=== PATIENT | male | born 1955 | race Caucasian/White ===

== ENCOUNTER → 2016-07-28 | Outpatient (CLI) | payer OTHER ==
[~2016-07-28] VITALS: Ht 182.9 cm; Wt 88.5 kg
[~2016-07-28] MED LIST: ADENOSINE 74 MG in GIVE UN-DILUTED 0 ML IV ONE; ADENOSINE 90 MG/30 ML INJ IV ONE
[2016-07-28 14:24] LABS: Urine Bilirubin Negative (Negative); Urine Blood Negative /uL (Negative); Urine Color Colorless (Yellow); Urine Glucose Normal (Normal); Urine Ketone Negative (Negative); Urine Nitrite Negative (Negative); Urine Urobilinogen Normal (Negative)
[2016-07-28 14:26] LABS: Basophils # (auto) 0 uL; Basophils % (auto) 0.5 % (0.0-2.0); Eosinophils # (auto) 0.2 uL; Eosinophils % (auto) 2.4 % (0.0-7.0); Hematocrit 46.3 % (41.0-53.0); Hemoglobin 15.1 g/dL (13.5-17.5); Lymphocytes # (auto) 2.1 uL; Lymphocytes % (auto) 23.2 % (10.0-50.0); Mean Corpuscular Hemoglobin 30.1 pg (28.0-32.0); Mean Corpuscular Hgb Conc. 32.5 g/dL (32.0-36.0); Mean Corpuscular Volume 92.3 fL (80.0-100.0); Mean Platelet Volume 8.6 fL (7.4-10.4); Neutrophils # (auto) 5.8 uL; Neutrophils % (auto) 62.9 % (37.0-80.0); Platelet Count (auto) 366 10^3/uL (140-450); White Blood Cell 9.2 10^3/uL (4.4-10.8)
[2016-07-28 14:59] LABS: Albumin 3.9 g/dL (3.4-5.0); BUN/Creatinine Ratio 10.3; Bilirubin, Direct 0.1 mg/dL (0-0.2); Bilirubin, Total 0.5 mg/dL (0.2-1.0); Calcium 9.5 mg/dL (8.5-10.1); Potassium 3.7 mmol/L (3.5-5.1)
== END | disposition home or self-care (01) ==
LOC: Rad HDHVI 08:56
PROVIDERS: ATTEND Internal Medicine Cardiovascular Disease
DX: I10 Essential (primary) hypertension (principal); E78.00 Pure hypercholesterolemia, unspecified; K74.1 Hepatic sclerosis; E11.9 Type 2 diabetes mellitus without complications; R97.20 Elevated prostate specific antigen [PSA]; R53.81 Other malaise; E03.9 Hypothyroidism, unspecified; D64.9 Anemia, unspecified; E55.9 Vitamin D deficiency, unspecified; N39.0 Urinary tract infection, site not specified
CPT/HCPCS: 36415; 78452; 80048; 80061; 80076; 81003; 82306; 83036; 84153; 84403; 84443; 85025; 93005; 93306; 96374; 96375; J0153

== ENCOUNTER → 2016-08-02 | Outpatient (CLI) | payer OTHER | END | disposition home or self-care (01) | LOC: Rad HDHVI 09:15 | PROVIDERS: ATTEND Internal Medicine Cardiovascular Disease | DX: Z01.810 Encounter for preprocedural cardiovascular examination (principal); I76 Septic arterial embolism | CPT/HCPCS: 93926 ==

== ENCOUNTER → 2016-09-13 | Outpatient (CLI) | payer OTHER ==
[2016-09-13 15:06] LABS: Body Fluid Polymorphonuclear 10 %
== END | disposition home or self-care (01) ==
LOC: LAB 09:30
DX: M06.9 Rheumatoid arthritis, unspecified (principal); M00.9 Pyogenic arthritis, unspecified; M10.9 Gout, unspecified; M25.50 Pain in unspecified joint
CPT/HCPCS: 87070; 87205; 89051; 89060

== ENCOUNTER → 2016-09-15 | Outpatient (CLI) | payer OTHER ==
[2016-09-15 11:46] LABS: Urine RBC None Seen /hpf (0 - 3)
[2016-09-15 12:13] LABS: Albumin 3.7 g/dL (3.4-5.0); BUN/Creatinine Ratio 14.1; Bilirubin, Total 0.7 mg/dL (0.2-1.0); Calcium 8.9 mg/dL (8.5-10.1); Potassium 3.6 mmol/L (3.5-5.1); Total Protein 6.6 g/dL (6.4-8.2)
[2016-09-15 12:22] LABS: INR 0.97 (0.9-1.15); Partial Thromboplastin Time 25.4 sec (22.64-33.71)
[2016-09-15 12:23] LABS: Basophils # (auto) 0.1 uL; Basophils % (auto) 1.2 % (0.0-2.0); Eosinophils # (auto) 0.1 uL; Eosinophils % (auto) 1.3 % (0.0-7.0); Hemoglobin 13.5 g/dL (13.5-17.5); Lymphocytes # (auto) 2.3 uL; Lymphocytes % (auto) 23.3 % (10.0-50.0); Mean Corpuscular Hemoglobin 30.3 pg (28.0-32.0); Mean Corpuscular Hgb Conc. 33.8 g/dL (32.0-36.0); Mean Corpuscular Volume 89.7 fL (80.0-100.0); Mean Platelet Volume 8.3 fL (7.4-10.4); Monocytes # (auto) 0.9 uL; Monocytes % (auto) 9.6 % (0.0-12.0); Neutrophils # (auto) 6.3 uL; Neutrophils % (auto) 64.6 % (37.0-80.0); Platelet Count (auto) 329 10^3/uL (140-450); Red Cell Distribution Width 16.4 % (11.6-16.0); White Blood Cell 9.7 10^3/uL (4.4-10.8)
[2016-09-15 13:07] LABS: Urine Bilirubin Negative (Negative); Urine Blood Negative /uL (Negative); Urine Color Yellow (Yellow); Urine Glucose Normal (Normal); Urine Ketone Negative (Negative); Urine Nitrite Negative (Negative); Urine Squamous Epithelial Cell FEW /hpf (<5); Urine Urobilinogen Normal (Negative)
== END | disposition home or self-care (01) ==
LOC: LAB 11:30
PROVIDERS: ATTEND Internal Medicine
DX: Z01.818 Encounter for other preprocedural examination (principal)
CPT/HCPCS: 36415; 80053; 81001; 85025; 85610; 85730

== ENCOUNTER → 2017-02-27 | Outpatient (CLI) | payer OTHER ==
[~2017-02-27] MED LIST changes: -ADENOSINE 74 MG in GIVE UN-DILUTED 0 ML IV ONE; -ADENOSINE 90 MG/30 ML INJ IV ONE; +ATOR1TAB PO; +GABA-497 PO; +HYDR-4663 PO; +IBUP800T24 PO; +PEN400T PO; +PRE5T PO
== END | disposition home or self-care (01) ==
LOC: LAB 12:21
PROVIDERS: ATTEND Internal Medicine Gastroenterology
DX: R10.13 Epigastric pain (principal); Z95.5 Presence of coronary angioplasty implant and graft
CPT/HCPCS: 36415; 82565; 84520

== ENCOUNTER → 2017-03-03 | Outpatient (CLI) | payer OTHER ==
[2017-03-03 10:12] LABS: Basophils # (auto) 0 uL; Basophils % (auto) 0.4 % (0.0-2.0); CONDITION Y; Eosinophils # (auto) 0.2 uL; Eosinophils % (auto) 2.2 % (0.0-7.0); Hematocrit 42.8 % (41.0-53.0); Hemoglobin 14.6 g/dL (13.5-17.5); Lymphocytes # (auto) 2.4 uL; Lymphocytes % (auto) 28.2 % (10.0-50.0); Mean Corpuscular Hgb Conc. 34.1 g/dL (32.0-36.0); Mean Corpuscular Volume 90.9 fL (80.0-100.0); Mean Platelet Volume 8.3 fL (7.4-10.4); Monocytes # (auto) 0.9 uL; Monocytes % (auto) 10.6 % (0.0-12.0); Neutrophils % (auto) 58.6 % (37.0-80.0); Platelet Count (auto) 341 10^3/uL (140-450); Red Cell Distribution Width 15.8 % (11.6-16.0); White Blood Cell 8.6 10^3/uL (4.4-10.8)
[2017-03-03 10:48] LABS: Albumin 3.8 g/dL (3.4-5.0); BUN/Creatinine Ratio 11.6; Bilirubin, Total 0.4 mg/dL (0.2-1.0); Calcium 9.2 mg/dL (8.5-10.1); Potassium 3.5 mmol/L (3.5-5.1); Total Protein 6.8 g/dL (6.4-8.2)
== END | disposition home or self-care (01) ==
LOC: LAB 09:42
DX: I10 Essential (primary) hypertension (principal); D64.9 Anemia, unspecified; M06.9 Rheumatoid arthritis, unspecified; M25.50 Pain in unspecified joint; Z79.899 Other long term (current) drug therapy
CPT/HCPCS: 36415; 80053; 85025; 85652; 86141

== ENCOUNTER → 2017-03-08 | Outpatient (CLI) | payer OTHER ==
[~2017-03-08] MED LIST changes: +ASPI81TA27 PO; -ATOR1TAB PO; +CLOP75TA28 PO; -HYDR-4663 PO; +HYDR200T PO; -IBUP800T24 PO; +OMEP20CA74 PO; +ZOLP-158 PO
== END | disposition home or self-care (01) ==
LOC: XY 09:47
PROVIDERS: ATTEND Internal Medicine Cardiovascular Disease
DX: I73.9 Peripheral vascular disease, unspecified (principal)
CPT/HCPCS: 93925

== ENCOUNTER 2017-03-10 09:41 | Day surgery (SDC) | payer OTHER ==
[2017-03-07 12:35] LABS: Basophils # (auto) 0 uL; Basophils % (auto) 0.2 % (0.0-2.0); CONDITION Y; Eosinophils # (auto) 0.2 uL; Eosinophils % (auto) 1.7 % (0.0-7.0); Hematocrit 43.7 % (41.0-53.0); Hemoglobin 14.6 g/dL (13.5-17.5); Lymphocytes % (auto) 18.7 % (10.0-50.0); Mean Corpuscular Hemoglobin 31.1 pg (28.0-32.0); Mean Corpuscular Hgb Conc. 33.6 g/dL (32.0-36.0); Mean Corpuscular Volume 92.8 fL (80.0-100.0); Mean Platelet Volume 9.1 fL (7.4-10.4); Monocytes % (auto) 9.8 % (0.0-12.0); Neutrophils # (auto) 7.3 uL; Neutrophils % (auto) 69.6 % (37.0-80.0); Platelet Count (auto) 348 10^3/uL (140-450); Red Cell Distribution Width 15.9 % (11.6-16.0); White Blood Cell 10.6 10^3/uL (4.4-10.8)
[2017-03-07 12:58] LABS: INR 0.92 (0.9-1.15); Partial Thromboplastin Time 28.6 sec (22.64-33.71)
[~2017-03-10] VITALS: Ht 182.9 cm; Wt 86.2 kg
[2017-03-10 11:47] VITALS: BP 133/73
== END 2017-03-10 11:58 | disposition home or self-care (01) ==
LOC: GI 09:41
PROVIDERS: ATTEND Internal Medicine Gastroenterology
DX: K29.50 Unspecified chronic gastritis without bleeding (principal); K44.9 Diaphragmatic hernia without obstruction or gangrene; K20.8 Other esophagitis; F17.210 Nicotine dependence, cigarettes, uncomplicated
CPT/HCPCS: 36415; 43239; 85025; 85610; 85730; 88305; J1200; J2250; J3010; J7030

== ENCOUNTER 2017-04-24 07:47 | Day surgery (SDC) | payer OTHER ==
[2017-04-20 09:37] LABS: INR 0.86 (0.9-1.15); Prothrombin Time 9.4 sec (9.37-12.3)
[2017-04-20 10:16] LABS: Basophils # (auto) 0.1 uL; Basophils % (auto) 0.7 % (0.0-2.0); Eosinophils # (auto) 0.1 uL; Eosinophils % (auto) 1.2 % (0.0-7.0); Hematocrit 45.3 % (41.0-53.0); Hemoglobin 15.2 g/dL (13.5-17.5); Lymphocytes # (auto) 2.1 uL; Lymphocytes % (auto) 17.8 % (10.0-50.0); Mean Corpuscular Hemoglobin 31.4 pg (28.0-32.0); Mean Corpuscular Hgb Conc. 33.7 g/dL (32.0-36.0); Mean Corpuscular Volume 93.2 fL (80.0-100.0); Mean Platelet Volume 8.4 fL (6.9-10.8); Monocytes # (auto) 1.1 uL; Monocytes % (auto) 9.5 % (0.0-12.0); Neutrophils # (auto) 8.3 uL; Neutrophils % (auto) 70.8 % (37.0-80.0); Platelet Count (auto) 324 10^3/uL (140-450); Red Cell Distribution Width 15.2 % (11.8-14.3); White Blood Cell 11.7 10^3/uL (4.4-10.8)
[~2017-04-24] VITALS: Ht 182.9 cm; Wt 86.2 kg
[~2017-04-24 07:47] MED LIST changes: +ALPR0.25 PO; -GABA-497 PO; +NORT25CA PO; -OMEP20CA74 PO; +PANT40TA2 PO
[2017-04-24] MEDS ORDERED: FLUMAZENIL 0.1 MG/ML INJ 10ML MDV IV ONE (08:03)
[2017-04-24] MEDS ORDERED: NALOXONE HCL 0.4 MG/ML VIAL ONE (08:03)
[2017-04-24] MEDS ORDERED: SODIUM CHLORIDE LOCK 10 ML ONE (08:04)
[2017-04-24] MEDS ORDERED: diphenhdrAMINE HCL 50 MG/1 ML VL ONE (08:04)
[2017-04-24] MEDS: fentaNYL CITRATE 100 MCG/2 ML VL ONE ×2 (09:29→09:33)
[2017-04-24] MEDS: MIDAZOLAM HCL 5 MG/ML-1ML VIAL ONE ×2 (09:29→09:33)
[2017-04-24 10:20] VITALS: BP 118/70
== END 2017-04-24 10:22 | disposition home or self-care (01) ==
LOC: GI 07:47
PROVIDERS: ATTEND Internal Medicine Gastroenterology
DX: D12.3 Benign neoplasm of transverse colon (principal); K64.8 Other hemorrhoids; Z86.010 Personal history of colon polyps; M06.9 Rheumatoid arthritis, unspecified; F17.210 Nicotine dependence, cigarettes, uncomplicated
CPT/HCPCS: 36415; 45380; 85025; 85610; 85730; J1200; J2250; J3010; J7030

== ENCOUNTER → 2017-06-02 | Outpatient (CLI) | payer OTHER ==
[2017-06-02 10:25] LABS: Basophils # (auto) 0.1 uL; Basophils % (auto) 0.6 % (0.0-2.0); Eosinophils # (auto) 0.1 uL; Eosinophils % (auto) 1.1 % (0.0-7.0); Hematocrit 46.1 % (41.0-53.0); Hemoglobin 15.8 g/dL (13.5-17.5); Lymphocytes # (auto) 1.8 uL; Lymphocytes % (auto) 13.6 % (10.0-50.0); Mean Corpuscular Hemoglobin 31.4 pg (28.0-32.0); Mean Corpuscular Hgb Conc. 34.2 g/dL (32.0-36.0); Mean Corpuscular Volume 91.7 fL (80.0-100.0); Mean Platelet Volume 7.7 fL (6.9-10.8); Monocytes # (auto) 1.1 uL; Monocytes % (auto) 8.7 % (0.0-12.0); Neutrophils # (auto) 9.8 uL; Platelet Count (auto) 325 10^3/uL (140-450); Red Cell Distribution Width 15.1 % (11.8-14.3); White Blood Cell 12.9 10^3/uL (4.4-10.8)
[2017-06-02 10:35] LABS: Albumin 3.9 g/dL (3.4-5.0); BUN/Creatinine Ratio 10.5; Bilirubin, Total 0.6 mg/dL (0.2-1.0); Calcium 9.3 mg/dL (8.5-10.1); Potassium 3.8 mmol/L (3.5-5.1); Total Protein 7.3 g/dL (6.4-8.2)
== END | disposition home or self-care (01) ==
LOC: LAB 09:47
DX: I10 Essential (primary) hypertension (principal); M06.9 Rheumatoid arthritis, unspecified; I70.0 Atherosclerosis of aorta; E78.00 Pure hypercholesterolemia, unspecified; D64.9 Anemia, unspecified; Z79.899 Other long term (current) drug therapy
CPT/HCPCS: 36415; 80053; 85025; 85652; 86141

== ENCOUNTER → 2017-09-06 | Outpatient (CLI) | payer OTHER ==
[2017-09-06 16:02] LABS: Basophils # (auto) 0.1 uL; Basophils % (auto) 0.6 % (0.0-2.0); Eosinophils # (auto) 0.3 uL; Eosinophils % (auto) 3.3 % (0.0-7.0); Hemoglobin 14.4 g/dL (13.5-17.5); Lymphocytes # (auto) 1.7 uL; Lymphocytes % (auto) 21.3 % (10.0-50.0); Mean Corpuscular Hemoglobin 31.4 pg (28.0-32.0); Mean Corpuscular Hgb Conc. 34.1 g/dL (32.0-36.0); Mean Corpuscular Volume 91.8 fL (80.0-100.0); Monocytes % (auto) 13.3 % (0.0-12.0); Neutrophils # (auto) 4.8 uL; Neutrophils % (auto) 61.5 % (37.0-80.0); Platelet Count (auto) 321 10^3/uL (140-450); Red Blood Cells 4.58 10^6/uL (4.5-5.90); Red Cell Distribution Width 15.2 % (11.8-14.3); White Blood Cell 7.9 10^3/uL (4.4-10.8)
[2017-09-06 16:14] LABS: Urine Bacteria NONE SEEN /hpf (None Seen); Urine Blood Negative /uL (Negative); Urine Specific Gravity 1.015 (1.001-1.035); Urine WBC <1 /hpf (0 - 3)
[2017-09-06 16:18] LABS: Albumin 3.7 g/dL (3.4-5.0); BUN/Creatinine Ratio 17.8; Calcium 8.9 mg/dL (8.5-10.1); Potassium 4.1 mmol/L (3.5-5.1)
[2017-09-06 16:20] LABS: Bilirubin, Total 0.4 mg/dL (0.2-1.0)
== END | disposition home or self-care (01) ==
LOC: LAB 15:43
PROVIDERS: ATTEND Nurse Practitioner
DX: E78.5 Hyperlipidemia, unspecified (principal)
CPT/HCPCS: 36415; 80053; 81001; 83036; 84443; 85025

== ENCOUNTER → 2017-12-29 | Outpatient (CLI) | payer OTHER | END | disposition home or self-care (01) | LOC: XY 08:08 | PROVIDERS: ATTEND Family Medicine | DX: I10 Essential (primary) hypertension (principal); E78.5 Hyperlipidemia, unspecified; J44.9 Chronic obstructive pulmonary disease, unspecified; E11.9 Type 2 diabetes mellitus without complications; E03.9 Hypothyroidism, unspecified; R60.0 Localized edema; Z79.899 Other long term (current) drug therapy | CPT/HCPCS: 93925; 93971 ==

== ENCOUNTER → 2018-03-01 | Outpatient (CLI) | payer OTHER ==
[~2018-03-01] MED LIST changes: +HYDR-4441 PO; -HYDR200T PO
[2018-03-01 11:52] LABS: Basophils # (auto) 0 uL; Basophils % (auto) 0.5 % (0.0-2.0); Eosinophils # (auto) 0 uL; Eosinophils % (auto) 0.4 % (0.0-7.0); Hematocrit 43.9 % (41.0-53.0); Hemoglobin 14.9 g/dL (13.5-17.5); Lymphocytes # (auto) 0.6 uL; Lymphocytes % (auto) 6.2 % (10.0-50.0); Mean Corpuscular Hemoglobin 30.9 pg (28.0-32.0); Mean Corpuscular Volume 91.1 fL (80.0-100.0); Monocytes # (auto) 0.5 uL; Monocytes % (auto) 5.3 % (0.0-12.0); Neutrophils % (auto) 87.6 % (37.0-80.0); Nucleated Red Blood Cells % 0.1 %; Platelet Count (auto) 313 10^3/uL (140-450); Red Blood Cells 4.81 10^6/uL (4.5-5.90); Red Cell Distribution Width 15.3 % (11.8-14.3); White Blood Cell 9.1 10^3/uL (4.4-10.8)
[2018-03-01 12:50] LABS: Albumin 3.6 g/dL (3.4-5.0); BUN/Creatinine Ratio 15.6; Bilirubin, Total 0.5 mg/dL (0.2-1.0); CRP High Sensitivity 0.32 mg/dL (< 0.3); Potassium 4.1 mmol/L (3.5-5.1); Total Protein 6.9 g/dL (6.4-8.2)
== END | disposition home or self-care (01) ==
LOC: LAB 11:27
PROVIDERS: ATTEND Internal Medicine Rheumatology
DX: M06.9 Rheumatoid arthritis, unspecified (principal)
CPT/HCPCS: 36415; 80053; 85025; 85652; 86141; 86200; 86431

== ENCOUNTER → 2018-04-02 | Outpatient (CLI) | payer OTHER ==
[2018-04-02 10:05] LABS: Folate (Folic Acid) 13.61 ng/mL (5.38-24)
== END | disposition home or self-care (01) ==
LOC: LAB 08:41
PROVIDERS: ATTEND Psychiatry & Neurology Neurology
DX: G62.9 Polyneuropathy, unspecified (principal)
CPT/HCPCS: 36415; 82607; 82746; 82951; 84155; 84165

== ENCOUNTER → 2018-08-21 | Outpatient (CLI) | payer OTHER ==
[2018-08-22 08:08] LABS: Immunoglobulin G, Serum 479 mg/dL (700-1600); RPR Non Reactive (Non Reactive)
[2018-08-22 11:41] LABS: Folate (Folic Acid) 9.02 ng/mL (5.38-24)
== END | disposition home or self-care (01) ==
LOC: LAB 09:17
DX: F07.81 Postconcussional syndrome (principal); G62.89 Other specified polyneuropathies; G56.01 Carpal tunnel syndrome, right upper limb; Z68.28 Body mass index [BMI] 28.0-28.9, adult
CPT/HCPCS: 36415; 82607; 82746; 82784; 82951; 83036; 84155; 84156; 84165; 84166; 84207; 84425; 84443; 86334; 86592

== ENCOUNTER → 2018-09-13 | Outpatient (CLI) | payer OTHER ==
[2018-09-13 09:28] LABS: Basophils # (auto) 0.1 uL; Basophils % (auto) 1.2 % (0.0-2.0); Eosinophils # (auto) 0.1 uL; Hematocrit 44.3 % (41.0-53.0); Hemoglobin 14.7 g/dL (13.5-17.5); Lymphocytes # (auto) 1.6 uL; Lymphocytes % (auto) 27.2 % (10.0-50.0); Mean Corpuscular Hemoglobin 30.4 pg (28.0-32.0); Mean Corpuscular Hgb Conc. 33.3 g/dL (32.0-36.0); Mean Corpuscular Volume 91.4 fL (80.0-100.0); Monocytes # (auto) 0.7 uL; Monocytes % (auto) 11.1 % (0.0-12.0); Neutrophils # (auto) 3.5 uL; Neutrophils % (auto) 58.5 % (37.0-80.0); Platelet Count (auto) 279 10^3/uL (140-450); Red Blood Cells 4.84 10^6/uL (4.5-5.90); Red Cell Distribution Width 15.1 % (11.8-14.3)
[2018-09-13 10:05] LABS: Albumin 3.7 g/dL (3.4-5.0); Calcium 8.8 mg/dL (8.5-10.1); Potassium 3.6 mmol/L (3.5-5.1)
[2018-09-13 10:08] LABS: BUN/Creatinine Ratio 12.5; Bilirubin, Total 0.7 mg/dL (0.2-1.0); Total Protein 6.8 g/dL (6.4-8.2)
[2018-09-13 10:20] LABS: Free T4 (Free Thyroxine) 1.11 ng/dL (0.89-1.76)
[2018-09-13 10:21] LABS: Folate (Folic Acid) 11.91 ng/mL (5.38-24)
== END | disposition home or self-care (01) ==
LOC: LAB 09:08
PROVIDERS: ATTEND Internal Medicine
DX: I73.9 Peripheral vascular disease, unspecified (principal); R07.9 Chest pain, unspecified; R13.10 Dysphagia, unspecified; Z68.27 Body mass index [BMI] 27.0-27.9, adult; Z98.62 Peripheral vascular angioplasty status
CPT/HCPCS: 36415; 80053; 80061; 82746; 84439; 84443; 85025; 86200; 86431

== ENCOUNTER → 2018-09-26 | Outpatient (CLI) | payer OTHER | END | disposition home or self-care (01) | LOC: Rad HDHVI 14:48 | PROVIDERS: ATTEND Internal Medicine Cardiovascular Disease | DX: I05.9 Rheumatic mitral valve disease, unspecified (principal) | CPT/HCPCS: 93306 ==

== ENCOUNTER → 2018-10-01 | Outpatient (CLI) | payer OTHER ==
[2018-10-01 09:51] LABS: Basophils # (auto) 0.1 uL; Basophils % (auto) 1.2 % (0.0-2.0); Eosinophils # (auto) 0.1 uL; Eosinophils % (auto) 1.7 % (0.0-7.0); Hematocrit 43.3 % (41.0-53.0); Hemoglobin 14.5 g/dL (13.5-17.5); Lymphocytes # (auto) 1.3 uL; Lymphocytes % (auto) 23.9 % (10.0-50.0); Mean Corpuscular Hemoglobin 30.6 pg (28.0-32.0); Mean Corpuscular Hgb Conc. 33.6 g/dL (32.0-36.0); Monocytes # (auto) 0.8 uL; Monocytes % (auto) 14.1 % (0.0-12.0); Neutrophils # (auto) 3.3 uL; Neutrophils % (auto) 59.1 % (37.0-80.0); Platelet Count (auto) 279 10^3/uL (140-450); Red Blood Cells 4.75 10^6/uL (4.5-5.90); Red Cell Distribution Width 15.2 % (11.8-14.3); White Blood Cell 5.5 10^3/uL (4.4-10.8)
== END | disposition home or self-care (01) ==
LOC: LAB 09:06
PROVIDERS: ATTEND Internal Medicine
DX: D47.2 Monoclonal gammopathy (principal)
CPT/HCPCS: 36415; 82232; 83883; 85025

== ENCOUNTER → 2018-10-02 | Outpatient (CLI) | payer OTHER | END | disposition home or self-care (01) | LOC: LAB 15:01 | PROVIDERS: ATTEND Internal Medicine | DX: D72.822 Plasmacytosis (principal) | CPT/HCPCS: 88189; 88291; 88341 ==

== ENCOUNTER → 2018-10-31 | Outpatient (CLI) | payer OTHER ==
[~2018-10-31] VITALS: Ht 182.9 cm; Wt 88.5 kg
[~2018-10-31] MED LIST changes: +ADENOSINE 74 MG in GIVE UN-DILUTED 0 ML IV ONE; +ADENOSINE 90 MG/30 ML INJ IV ONE
== END | disposition home or self-care (01) ==
LOC: Rad HDHVI 09:56
PROVIDERS: ATTEND Internal Medicine Cardiovascular Disease
DX: I25.10 Atherosclerotic heart disease of native coronary artery without angina pectoris (principal); I10 Essential (primary) hypertension; E78.5 Hyperlipidemia, unspecified; R06.02 Shortness of breath
CPT/HCPCS: 78452; 93005; 96374; 96375; A9500; J0153

== ENCOUNTER → 2018-11-13 | Outpatient (CLI) | payer OTHER ==
[~2018-11-13] MED LIST changes: -ADENOSINE 74 MG in GIVE UN-DILUTED 0 ML IV ONE; -ADENOSINE 90 MG/30 ML INJ IV ONE
== END | disposition home or self-care (01) ==
LOC: LAB 09:31
PROVIDERS: ATTEND Internal Medicine Gastroenterology
DX: R13.10 Dysphagia, unspecified (principal); R19.5 Other fecal abnormalities
CPT/HCPCS: 82705; 82784; 83516; 86255; 87045

== ENCOUNTER 2018-12-25 11:38 | Day surgery (SDC) | payer OTHER ==
[2018-12-20 15:18] LABS: Basophils # (auto) 0.1 uL; Eosinophils # (auto) 0.1 uL; Eosinophils % (auto) 1.2 % (0.0-7.0); Hematocrit 44.9 % (41.0-53.0); Hemoglobin 15.1 g/dL (13.5-17.5); Lymphocytes # (auto) 0.9 uL; Lymphocytes % (auto) 11.8 % (10.0-50.0); Mean Corpuscular Hemoglobin 30.4 pg (28.0-32.0); Mean Corpuscular Hgb Conc. 33.7 g/dL (32.0-36.0); Mean Corpuscular Volume 90.3 fL (80.0-100.0); Monocytes # (auto) 0.8 uL; Neutrophils # (auto) 5.9 uL; Platelet Count (auto) 277 10^3/uL (140-450); Red Blood Cells 4.98 10^6/uL (4.5-5.90); White Blood Cell 7.8 10^3/uL (4.4-10.8)
[2018-12-20 15:22] LABS: INR 0.87 (0.9-1.15); Partial Thromboplastin Time 25.3 sec (23.64-32.05)
[~2018-12-25] VITALS: Ht 182.9 cm; Wt 88.5 kg
[~2018-12-25 11:38] MED LIST changes: -ASPI81TA27 PO; +GABA300C10 PO; +LEFL20TA PO; -NORT25CA PO; -PEN400T PO
[2018-12-25] MEDS ORDERED: LIDOCAINE VISCOUS 2% 15ML UD MT ONE (11:39)
[2018-12-25] MEDS ORDERED: NALOXONE HCL 0.4 MG/ML VIAL ONE (11:55)
[2018-12-25] MEDS ORDERED: SODIUM CHLORIDE LOCK 10 ML ONE (11:55)
[2018-12-25] MEDS ORDERED: FLUMAZENIL 0.1 MG/ML INJ 10ML MDV IV ONE (11:55)
[2018-12-25] MEDS ORDERED: diphenhdrAMINE HCL 50 MG/1 ML VL ONE (11:56)
[2018-12-25] MEDS: MIDAZOLAM HCL 5 MG/ML-1ML VIAL ONE ×2 (12:06→12:09)
[2018-12-25] MEDS: fentaNYL CITRATE 100 MCG/2 ML VL ONE ×2 (12:06→12:09)
[2018-12-25 12:37] VITALS: BP 112/66
== END 2018-12-25 12:51 | disposition home or self-care (01) ==
LOC: GI 11:38
PROVIDERS: ATTEND Internal Medicine Gastroenterology
DX: K29.50 Unspecified chronic gastritis without bleeding (principal); K29.80 Duodenitis without bleeding; M19.90 Unspecified osteoarthritis, unspecified site; G62.9 Polyneuropathy, unspecified; Z79.899 Other long term (current) drug therapy; Z95.9 Presence of cardiac and vascular implant and graft, unspecified; Z91.041 Radiographic dye allergy status; Z88.0 Allergy status to penicillin; Z87.891 Personal history of nicotine dependence; Z87.01 Personal history of pneumonia (recurrent)
CPT/HCPCS: 36415; 43239; 43450; 85025; 85610; 85730; 88305; 88342; J2250; J3010; J7030

== ENCOUNTER → 2019-02-04 | Outpatient (CLI) | payer OTHER ==
[~2019-02-04] MED LIST changes: +HYDR-4188 PO; -HYDR-4441 PO
[2019-02-04 08:39] LABS: Basophils # (auto) 0.1 uL; Basophils % (auto) 1.2 % (0.0-2.0); Eosinophils # (auto) 0.2 uL; Hematocrit 42.4 % (41.0-53.0); Hemoglobin 14.4 g/dL (13.5-17.5); Lymphocytes # (auto) 1.4 uL; Lymphocytes % (auto) 16.8 % (10.0-50.0); Mean Corpuscular Hemoglobin 30.2 pg (28.0-32.0); Mean Corpuscular Hgb Conc. 33.9 g/dL (32.0-36.0); Mean Corpuscular Volume 89.2 fL (80.0-100.0); Monocytes % (auto) 12.3 % (0.0-12.0); Neutrophils # (auto) 5.8 uL; Neutrophils % (auto) 67.7 % (37.0-80.0); Platelet Count (auto) 288 10^3/uL (140-450); Red Blood Cells 4.76 10^6/uL (4.5-5.90); Red Cell Distribution Width 15.5 % (11.8-14.3); White Blood Cell 8.5 10^3/uL (4.4-10.8)
[2019-02-04 09:01] LABS: Potassium 3.5 mmol/L (3.5-5.1)
[2019-02-04 09:43] LABS: Albumin 3.5 g/dL (3.4-5.0); BUN/Creatinine Ratio 15.5; Bilirubin, Total 0.6 mg/dL (0.2-1.0); Calcium 8.8 mg/dL (8.5-10.1); Total Protein 6.9 g/dL (6.4-8.2)
== END | disposition home or self-care (01) ==
LOC: LAB 08:03
PROVIDERS: ATTEND Internal Medicine
DX: Z12.5 Encounter for screening for malignant neoplasm of prostate (principal); Z12.11 Encounter for screening for malignant neoplasm of colon; I25.10 Atherosclerotic heart disease of native coronary artery without angina pectoris
CPT/HCPCS: 36415; 80053; 80061; 84153; 84443; 85025

== ENCOUNTER → 2019-04-22 | Outpatient (CLI) | payer OTHER ==
[2019-04-22 13:53] LABS: Basophils # (auto) 0.1 uL; Basophils % (auto) 0.9 % (0.0-2.0); Eosinophils # (auto) 0.1 uL; Eosinophils % (auto) 2.2 % (0.0-7.0); Hematocrit 43.4 % (41.0-53.0); Hemoglobin 14.5 g/dL (13.5-17.5); Lymphocytes # (auto) 1.2 uL; Lymphocytes % (auto) 21.7 % (10.0-50.0); Mean Corpuscular Hemoglobin 30.2 pg (28.0-32.0); Mean Corpuscular Hgb Conc. 33.5 g/dL (32.0-36.0); Mean Corpuscular Volume 90.2 fL (80.0-100.0); Monocytes # (auto) 0.7 uL; Monocytes % (auto) 12.7 % (0.0-12.0); Neutrophils # (auto) 3.5 uL; Neutrophils % (auto) 62.5 % (37.0-80.0); Platelet Count (auto) 282 10^3/uL (140-450); Red Blood Cells 4.81 10^6/uL (4.5-5.90); Red Cell Distribution Width 15.2 % (11.8-14.3); White Blood Cell 5.6 10^3/uL (4.4-10.8)
[2019-04-22 14:05] LABS: Albumin 3.9 g/dL (3.4-5.0); Potassium 3.7 mmol/L (3.5-5.1)
[2019-04-22 14:10] LABS: BUN/Creatinine Ratio 14.9; Bilirubin, Total 0.8 mg/dL (0.2-1.0); Total Protein 7.2 g/dL (6.4-8.2)
[2019-04-23 08:08] LABS: Immunoglobulin G, Serum 491 mg/dL (700-1600)
== END | disposition home or self-care (01) ==
LOC: LAB 12:57
PROVIDERS: ATTEND Internal Medicine Hematology & Oncology
DX: D47.2 Monoclonal gammopathy (principal)
CPT/HCPCS: 36415; 80053; 82784; 83615; 84155; 84156; 84165; 84166; 85025

== ENCOUNTER 2019-05-28 06:05 | Emergency (ER) | payer OTHER ==
[~2019-05-28] VITALS: Ht 182.9 cm; Wt 88.5 kg
[2019-05-28 06:18] VITALS: BP 108/77
== END 2019-05-28 07:15 | disposition home or self-care (01) ==
LOC: ER 06:06
DX: S80.11XA Contusion of right lower leg, initial encounter (principal); I25.10 Atherosclerotic heart disease of native coronary artery without angina pectoris; E78.00 Pure hypercholesterolemia, unspecified; F17.210 Nicotine dependence, cigarettes, uncomplicated; Z88.0 Allergy status to penicillin; Z79.899 Other long term (current) drug therapy; V29.9XXA Motorcycle rider (driver) (passenger) injured in unspecified traffic accident, initial encounter; Y93.89 Activity, other specified; Y92.89 Other specified places as the place of occurrence of the external cause; Y99.8 Other external cause status
CPT/HCPCS: 10140

== ENCOUNTER 2019-06-20 06:23 | Emergency (ER) | payer OTHER ==
[~2019-06-20] VITALS: Ht 182.9 cm; Wt 88.5 kg
[2019-06-20 09:24] LABS: Basophils # (auto) 0.1 uL; Eosinophils # (auto) 0.2 uL; Hematocrit 43.8 % (41.0-53.0); Hemoglobin 14.5 g/dL (13.5-17.5); Lymphocytes # (auto) 1.1 uL; Lymphocytes % (auto) 15.1 % (10.0-50.0); Mean Corpuscular Hemoglobin 29.8 pg (28.0-32.0); Mean Corpuscular Volume 90.4 fL (80.0-100.0); Neutrophils # (auto) 4.7 uL; Neutrophils % (auto) 66.9 % (37.0-80.0); Platelet Count (auto) 318 10^3/uL (140-450); Red Blood Cells 4.84 10^6/uL (4.5-5.90); Red Cell Distribution Width 15.4 % (11.8-14.3)
[2019-06-20 09:43] LABS: Albumin 3.6 g/dL (3.4-5.0); Potassium 4.3 mmol/L (3.5-5.1)
[2019-06-20 09:47] LABS: BUN/Creatinine Ratio 15.1; Bilirubin, Total 0.5 mg/dL (0.2-1.0); Total Protein 6.7 g/dL (6.4-8.2)
[2019-06-20 09:59] VITALS: BP 125/76
[2019-06-20 11:08] LABS: Urine Bacteria NONE SEEN /hpf (None Seen); Urine Blood Negative /uL (Negative); Urine Specific Gravity 1.009 (1.001-1.035); Urine WBC <1 /hpf (0 - 3)
== END 2019-06-20 13:39 | disposition home or self-care (01) ==
LOC: ER 06:23
DX: L03.115 Cellulitis of right lower limb (principal); M19.90 Unspecified osteoarthritis, unspecified site; E78.5 Hyperlipidemia, unspecified; Z86.73 Personal history of transient ischemic attack (TIA), and cerebral infarction without residual deficits; Z88.0 Allergy status to penicillin
CPT/HCPCS: 36415; 80053; 81001; 85025; 87040; 93971

== ENCOUNTER → 2019-09-24 | Outpatient (CLI) | payer OTHER ==
[2019-09-24 10:20] LABS: Basophils # (auto) 0.1 10 ^3/uL (0-0.2); Basophils % (auto) 1.2 % (0.0-2.0); Eosinophils # (auto) 0.1 10 ^3/uL (0-0.8); Eosinophils % (auto) 2.6 % (0.0-7.0); Hemoglobin 15.2 g/dL (13.5-17.5); Lymphocytes # (auto) 1.2 10 ^3/uL (0.4-5.4); Lymphocytes % (auto) 21.5 % (10.0-50.0); Mean Corpuscular Hemoglobin 30.1 pg (28.0-32.0); Mean Corpuscular Hgb Conc. 33.8 g/dL (32.0-36.0); Mean Corpuscular Volume 89.1 fL (80.0-100.0); Monocytes # (auto) 0.7 10 ^3/uL (0-1.3); Monocytes % (auto) 12.8 % (0.0-12.0); Neutrophils # (auto) 3.4 10 ^3/uL (1.6-8.6); Neutrophils % (auto) 61.9 % (37.0-80.0); Nucleated Red Blood Cells % 0.1 %; Platelet Count (auto) 278 10^3/uL (140-450); Red Blood Cells 5.05 10^6/uL (4.5-5.90); Red Cell Distribution Width 15.8 % (11.8-14.3); White Blood Cell 5.5 10^3/uL (4.4-10.8)
[2019-09-24 10:50] LABS: Albumin 3.7 g/dL (3.4-5.0); Calcium 9.2 mg/dL (8.5-10.1); Potassium 3.9 mmol/L (3.5-5.1)
[2019-09-24 10:54] LABS: BUN/Creatinine Ratio 10.1; Bilirubin, Total 0.6 mg/dL (0.2-1.0); Total Protein 7.2 g/dL (6.4-8.2)
[2019-09-25 10:06] LABS: Immunoglobulin G, Serum 522 mg/dL (700-1600)
== END | disposition home or self-care (01) ==
LOC: LAB 09:42
PROVIDERS: ATTEND Internal Medicine
DX: D47.3 Essential (hemorrhagic) thrombocythemia (principal)
CPT/HCPCS: 36415; 80053; 82232; 82784; 83883; 84155; 84165; 85025

== ENCOUNTER → 2019-12-03 | Outpatient (CLI) | payer OTHER ==
[~2019-12-03] MED LIST changes: +SULF500T2 PO; +TRAM50TA2 PO
[2019-12-03 11:14] LABS: Basophils # (auto) 0.1 10 ^3/uL (0-0.2); Basophils % (auto) 0.7 % (0.0-2.0); Eosinophils # (auto) 0.1 10 ^3/uL (0-0.8); Eosinophils % (auto) 0.7 % (0.0-7.0); Hematocrit 44.7 % (41.0-53.0); Hemoglobin 14.9 g/dL (13.5-17.5); Lymphocytes # (auto) 0.8 10 ^3/uL (0.4-5.4); Lymphocytes % (auto) 10.2 % (10.0-50.0); Mean Corpuscular Hemoglobin 29.5 pg (28.0-32.0); Mean Corpuscular Hgb Conc. 33.4 g/dL (32.0-36.0); Mean Corpuscular Volume 88.4 fL (80.0-100.0); Monocytes # (auto) 0.6 10 ^3/uL (0-1.3); Monocytes % (auto) 6.9 % (0.0-12.0); Neutrophils # (auto) 6.6 10 ^3/uL (1.6-8.6); Neutrophils % (auto) 81.5 % (37.0-80.0); Platelet Count (auto) 308 10^3/uL (140-450); Red Blood Cells 5.06 10^6/uL (4.5-5.90); Red Cell Distribution Width 15.5 % (11.8-14.3)
[2019-12-03 11:43] LABS: Albumin 3.6 g/dL (3.4-5.0); Calcium 9.1 mg/dL (8.5-10.1); Magnesium 2.5 mg/dL (1.6-2.6); Potassium 3.8 mmol/L (3.5-5.1)
[2019-12-03 11:46] LABS: BUN/Creatinine Ratio 12.4; Bilirubin, Total 0.7 mg/dL (0.2-1.0); Total Protein 7.1 g/dL (6.4-8.2)
== END | disposition home or self-care (01) ==
LOC: LAB 10:58
PROVIDERS: ATTEND Internal Medicine Rheumatology
DX: M06.9 Rheumatoid arthritis, unspecified (principal)
CPT/HCPCS: 36415; 80053; 83735; 85025

== ENCOUNTER → 2020-02-10 | Outpatient (CLI) | payer OTHER ==
[~2020-02-10] MED LIST changes: -SULF500T2 PO; -TRAM50TA2 PO
[2020-02-10 09:18] LABS: Basophils # (auto) 0.1 10 ^3/uL (0-0.2); Basophils % (auto) 1.3 % (0.0-2.0); Eosinophils # (auto) 0.1 10 ^3/uL (0-0.8); Eosinophils % (auto) 2.8 % (0.0-7.0); Hematocrit 44.8 % (41.0-53.0); Lymphocytes # (auto) 1.2 10 ^3/uL (0.4-5.4); Lymphocytes % (auto) 23.6 % (10.0-50.0); Mean Corpuscular Hemoglobin 29.7 pg (28.0-32.0); Mean Corpuscular Hgb Conc. 33.4 g/dL (32.0-36.0); Mean Corpuscular Volume 88.7 fL (80.0-100.0); Monocytes # (auto) 0.7 10 ^3/uL (0-1.3); Monocytes % (auto) 14.9 % (0.0-12.0); Neutrophils # (auto) 2.8 10 ^3/uL (1.6-8.6); Neutrophils % (auto) 57.4 % (37.0-80.0); Nucleated Red Blood Cells % 0.1 %; Platelet Count (auto) 301 10^3/uL (140-450); Red Blood Cells 5.05 10^6/uL (4.5-5.90); Red Cell Distribution Width 15.5 % (11.8-14.3); White Blood Cell 4.9 10^3/uL (4.4-10.8)
[2020-02-10 09:48] LABS: Potassium 3.8 mmol/L (3.5-5.1)
[2020-02-10 09:55] LABS: Albumin 3.6 g/dL (3.4-5.0); BUN/Creatinine Ratio 14.3; Bilirubin, Total 0.4 mg/dL (0.2-1.0); Calcium 9.4 mg/dL (8.5-10.1); Total Protein 7.2 g/dL (6.4-8.2)
== END | disposition home or self-care (01) ==
LOC: LAB 08:58
PROVIDERS: ATTEND Internal Medicine
DX: C90.00 Multiple myeloma not having achieved remission (principal)
CPT/HCPCS: 36415; 80053; 82232; 82784; 83615; 83883; 85025; 85652

== ENCOUNTER → 2020-03-25 | Outpatient (CLI) | payer OTHER ==
[~2020-03-25] MED LIST changes: +SULF500T2 PO; +TRAM50TA2 PO
== END | disposition home or self-care (01) ==
LOC: Rad HDHVI 10:58
PROVIDERS: ATTEND Internal Medicine Cardiovascular Disease
DX: I25.110 Atherosclerotic heart disease of native coronary artery with unstable angina pectoris (principal); E78.5 Hyperlipidemia, unspecified
CPT/HCPCS: 93306

== ENCOUNTER 2020-03-30 06:51 | Inpatient (IN) | payer OTHER ==
[~2020-03-30] VITALS: Ht 182.9 cm; Wt 95.4 kg
[~2020-03-30 06:51] MED LIST changes: -SULF500T2 PO; -TRAM50TA2 PO
[2020-03-30] MEDS ORDERED: SODIUM CHLORIDE 0.9% 1,000 ML IV ONE ×2 (07:21)
[2020-03-30 08:03] LABS: Basophils # (auto) 0.1 10 ^3/uL (0-0.2); Basophils % (auto) 0.5 % (0.0-2.0); Eosinophils # (auto) 0 10 ^3/uL (0-0.8); Eosinophils % (auto) 0.1 % (0.0-7.0); Hematocrit 42.1 % (41.0-53.0); Hemoglobin 13.9 g/dL (13.5-17.5); Lymphocytes # (auto) 0.4 10 ^3/uL (0.4-5.4); Lymphocytes % (auto) 2.3 % (10.0-50.0); Mean Corpuscular Hemoglobin 29.5 pg (28.0-32.0); Mean Corpuscular Volume 89.5 fL (80.0-100.0); Monocytes # (auto) 0.8 10 ^3/uL (0-1.3); Monocytes % (auto) 5.4 % (0.0-12.0); Neutrophils # (auto) 14.3 10 ^3/uL (1.6-8.6); Neutrophils % (auto) 91.7 % (37.0-80.0); Nucleated Red Blood Cells % 0.1 %; Platelet Count (auto) 225 10^3/uL (140-450); Red Blood Cells 4.71 10^6/uL (4.5-5.90); Red Cell Distribution Width 15.5 % (11.8-14.3); White Blood Cell 15.6 10^3/uL (4.4-10.8)
[2020-03-30 08:15] LABS: Albumin 3.7 g/dL (3.4-5.0); BUN/Creatinine Ratio 10.9; Calcium 9.3 mg/dL (8.5-10.1); Potassium 3.3 mmol/L (3.5-5.1)
[2020-03-30 08:19] LABS: Bilirubin, Total 0.9 mg/dL (0.2-1.0); INR 0.96 (0.9-1.15); Partial Thromboplastin Time 21.6 sec (23.0-31.2); Total Protein 7.2 g/dL (6.4-8.2)
[2020-03-30] MEDS ORDERED: KETOROLAC TROMETH 30 MG/ML 1ML VIAL IV ONE (10:15)
[2020-03-30 11:07] LABS: Urine Bacteria NONE SEEN /hpf (None Seen); Urine Blood TRACE /uL (Negative); Urine Mucus FEW (None Seen); Urine Specific Gravity 1.022 (1.001-1.035); Urine WBC 1 /hpf (0 - 3)
[2020-03-30] MEDS ORDERED: SODIUM CHLORIDE 0.9% 1,000 ML IV SCH (11:08)
[2020-03-30] MEDS ORDERED: HYDROcodone-ACET 5/325MG TAB PO PRN (11:15)
[2020-03-30] MEDS ORDERED: methylPREDNISolone SOD SUCC 125 MG/2 ML VL IV ONE (11:15)
[2020-03-30] MEDS ORDERED: ALUM & MAG HYDROX-SIMETH LIQ(MAALOX) 30 ML PO PRN (11:15)
[2020-03-30] MEDS ORDERED: NITROGLYCERIN 0.4 MG SL TAB SL PRN (11:15)
[2020-03-30] MEDS ORDERED: DOCUSATE SOD 100 MG CAP PO PRN (11:15)
[2020-03-30] MEDS ORDERED: MORPHINE SULF INJ 2 MG/ML SYRINGE 1ML IV PRN ×2 (11:15)
[2020-03-30] MEDS ORDERED: ONDANSETRON HCL 4 MG/2 ML VIAL IV PRN (11:15)
[2020-03-30] MEDS ORDERED: LORazepam 0.5 MG TAB PO PRN (11:15)
[2020-03-30] MEDS ORDERED: ACETAMINOPHEN 500 MG TAB PO PRN (11:15)
[2020-03-30] MEDS ORDERED: ENOXAPARIN SOD 100 MG/1 ML SYRINGE SC ONE (11:15)
[2020-03-30] MEDS ORDERED: hydrALAZINE HCL 20 MG/ML VL IV PRN (11:45)
[2020-03-30 11:52] LABS: Alcohol, Urine < 3.0 mg/dL (0-10); Amphetamine Screen, Urine NEGATIVE (NEGATIVE); Barbiturate Scree,Urine NEGATIVE (NEGATIVE); Benzodiazephine Screen, Urine NEGATIVE (NEGATIVE); Cannabinoid Screen, Urine NEGATIVE (NEGATIVE); Cocaine Screen, Urine NEGATIVE (NEGATIVE); Opiate Scree,Urine POSITIVE (NEGATIVE); Phencyclidine Screen, Urine NEGATIVE (NEGATIVE)
[2020-03-30 12:04] LABS: Albumin 3.4 g/dL (3.4-5.0); Calcium 8.7 mg/dL (8.5-10.1); Potassium 3.7 mmol/L (3.5-5.1)
[2020-03-30 12:07] LABS: BUN/Creatinine Ratio 13.9; Bilirubin, Total 0.8 mg/dL (0.2-1.0); Total Protein 6.2 g/dL (6.4-8.2)
[2020-03-30 12:15] LABS: CRP High Sensitivity 7.19 mg/dL (< 0.3)
[2020-03-30 13:32] LABS: Basophils # (auto) 0.1 10 ^3/uL (0-0.2); Basophils % (auto) 0.3 % (0.0-2.0); Eosinophils # (auto) 0 10 ^3/uL (0-0.8); Hematocrit 42.3 % (41.0-53.0); Hemoglobin 14.8 g/dL (13.5-17.5); Lymphocytes # (auto) 0.5 10 ^3/uL (0.4-5.4); Lymphocytes % (auto) 2.5 % (10.0-50.0); Mean Corpuscular Hemoglobin 30.9 pg (28.0-32.0); Mean Corpuscular Hgb Conc. 34.9 g/dL (32.0-36.0); Mean Corpuscular Volume 88.6 fL (80.0-100.0); Monocytes # (auto) 1.1 10 ^3/uL (0-1.3); Monocytes % (auto) 5.9 % (0.0-12.0); Neutrophils # (auto) 17.7 10 ^3/uL (1.6-8.6); Neutrophils % (auto) 91.3 % (37.0-80.0); Platelet Count (auto) 254 10^3/uL (140-450); Red Blood Cells 4.78 10^6/uL (4.5-5.90); Red Cell Distribution Width 15.4 % (11.8-14.3); White Blood Cell 19.3 10^3/uL (4.4-10.8)
[2020-03-30] MEDS ORDERED: ALBUTEROL SULF HFA 90MCG INH 200DOSE IN SCH (14:00)
[2020-03-30] MEDS: methylPREDNISolone SOD SUCC 40 MG/ML VL IV SCH ×2 (14:00→22:09)
[2020-03-30] MEDS: GABAPENTIN 300 MG CAP PO SCH ×2 (14:00→22:10)
[2020-03-30] MEDS ORDERED: TRAM50TA2 PO (15:04)
[2020-03-30] MEDS ORDERED: SULF500T2 PO (15:06)
--- NOTE | 2020-03-30 20:40 | NUR ---
assumed care of pt, EKG done by previous nurse, call out to Hospitalist r/t critical troponin of .73 from .075. awaiting call back. Pt is currently c/o pain in left wrist.
--- NOTE | 2020-03-30 20:40 | NUR ---
endorsed care to DESIRE Neri on [address], pt transported via wheelchair to [facility].
--- NOTE | 2020-03-30 21:17 | NUR ---
Hospitalist returned call, notified of troponins, and elevated temp of 102.4. Cooling measures initiated, pt medicated per protocol, no new orders.
--- NOTE | 2020-03-30 21:50 | NUR ---
v/s updated 135/72, 89, 95% on 2 lpm via n/c, t-101.3 temporal, pain 4/10. Fluids encouraged.
[2020-03-30 22:00] VITALS: BP 123/79
[2020-03-30] MEDS ORDERED: BUDESONIDE (INHALATION) 180 MCG IH IN SCH (22:00)
[2020-03-30] MEDS: DOXYCYCLINE 100MG/250ML 250 ML IV SCH (22:09)
[2020-03-30] MEDS: FAMOTIDINE 20 MG TAB PO SCH (22:10)
[2020-03-30] MEDS: ATORVASTATIN 20 MG TAB PO SCH (22:10)
[2020-03-30] MEDS: ENOXAPARIN SOD 100 MG/1 ML SYRINGE SC SCH (22:10)
--- NOTE | 2020-03-30 23:42 | NUR ---
lab reported critical results for troponins at 1.31. call out to inform practitioner.
--- NOTE | 2020-03-31 00:37 | NUR ---
Hospitalist returned call and was updated on troponin levels 1.31, no new orders.
[2020-03-31 05:00] VITALS: BP 99/61
[2020-03-31] MEDS: methylPREDNISolone SOD SUCC 40 MG/ML VL IV SCH (05:52)
[2020-03-31] MEDS: GABAPENTIN 300 MG CAP PO SCH ×3 (05:52→21:40)
[2020-03-31 05:53] LABS: Basophils # (auto) 0.1 10 ^3/uL (0-0.2); Basophils % (auto) 0.8 % (0.0-2.0); Eosinophils # (auto) 0 10 ^3/uL (0-0.8); Hematocrit 45.1 % (41.0-53.0); Hemoglobin 15.2 g/dL (13.5-17.5); Lymphocytes # (auto) 0.4 10 ^3/uL (0.4-5.4); Lymphocytes % (auto) 2.3 % (10.0-50.0); Mean Corpuscular Hemoglobin 30.2 pg (28.0-32.0); Mean Corpuscular Hgb Conc. 33.8 g/dL (32.0-36.0); Mean Corpuscular Volume 89.4 fL (80.0-100.0); Monocytes # (auto) 0.8 10 ^3/uL (0-1.3); Monocytes % (auto) 4.3 % (0.0-12.0); Neutrophils # (auto) 16.8 10 ^3/uL (1.6-8.6); Neutrophils % (auto) 92.6 % (37.0-80.0); Platelet Count (auto) 234 10^3/uL (140-450); Red Blood Cells 5.04 10^6/uL (4.5-5.90); Red Cell Distribution Width 15.4 % (11.8-14.3); White Blood Cell 18.2 10^3/uL (4.4-10.8)
[2020-03-31 06:11] LABS: Albumin 3.2 g/dL (3.4-5.0); Calcium 8.6 mg/dL (8.5-10.1); Potassium 3.8 mmol/L (3.5-5.1)
[2020-03-31 06:17] LABS: Bilirubin, Total 0.6 mg/dL (0.2-1.0); Total Protein 6.9 g/dL (6.4-8.2)
--- NOTE | 2020-03-31 07:30 | NUR ---
Opening Shift Note Assumed care of patient, awake and alert. No S/S of distress/SOB or pain. Instructed on POC and to call for assist PRN, will continue to monitor for changes Q1hr and PRN. Fall precautions in place per safety protocol.
[2020-03-31 08:59] VITALS: BP 128/71
[2020-03-31] MEDS: FAMOTIDINE 20 MG TAB PO SCH ×2 (09:26→21:40)
[2020-03-31] MEDS: ENOXAPARIN SOD 100 MG/1 ML SYRINGE SC SCH ×2 (09:27→21:40)
[2020-03-31] MEDS: DOXYCYCLINE 100MG/250ML 250 ML IV SCH ×2 (09:28→21:40)
[2020-03-31] MEDS ORDERED: VANCOMYCIN PER PHARMACY 0 MG IV SCH (09:30)
--- NOTE | 2020-03-31 09:40 | NUR ---
Positive blood CX Preliminary blood culture positive for MRSA. MD Nuñez aware. No new orders received at this time. Will cont to monitor patient.
[2020-03-31] MEDS ORDERED: CHOLECALCIFEROL (VITD3) 2,000 UNIT CAP PO SCH (10:00)
[2020-03-31] MEDS ORDERED: ASCORBIC ACID 1,000 MG TAB PO SCH (10:00)
[2020-03-31] MEDS ORDERED: ASPirin 81 mg TAB PO SCH (10:00)
[2020-03-31] MEDS ORDERED: ZINC SULFATE 220mg CAP or TAB PO SCH (10:00)
[2020-03-31] MEDS ORDERED: ASCORBIC ACID 500 MG TAB PO SCH (10:00)
--- NOTE | 2020-03-31 10:00 | NUR ---
Hospitalist MD Nuñez at bedside, aware of patient status new orders for CDIFF sample, chest/abd/pelvis ct, and EKG received. Will carry out new orders and cont to monitor patient.
[2020-03-31] MEDS: VANCOMYCIN 1GM/250ML 250 ML IV SCH (12:27)
[2020-03-31 12:40] VITALS: BP 117/71
[2020-03-31 16:17] VITALS: BP 125/81
--- NOTE | 2020-03-31 18:15 | NUR ---
Troponin Critical troponin of 1.57 received. Cardio already aware of elevated trops. Will cont to monitor patient.
[2020-03-31] MEDS: ATORVASTATIN 20 MG TAB PO SCH (21:40)
[2020-03-31 21:45] VITALS: BP 147/91
--- NOTE | 2020-03-31 23:49 | NUR ---
pt found by staff trying to ambulate to bathroom. Pt has new ALOC and jaundice noted, also has skin tear to right hand, pulled out his IV, and defecated all over the room, unable to stand on his own, or answer questions. Call out to hospitalist. V/S 138/93, p-76, rr 20, t-98.0. Troponins continue to trend upward, currently 1.57. Pt showered, full linen change, gown, booties, IV restarted 20g to LAC. ABT held until further orders.
[2020-04-01] VITALS (71 sets, daily range): BP systolic 99–163; BP diastolic 61–91
--- NOTE | 2020-04-01 01:44 | NUR ---
received a call from pharmacy with critical result for troponin of 1.3, troponins trending down, will notify hospitalist when he returns previous call out.
[2020-04-01] MEDS: GABAPENTIN 300 MG CAP PO SCH ×4 (06:00→21:47)
--- NOTE | 2020-04-01 06:12 | NUR ---
Hospitalist paged again to inform him of change of condition.
--- NOTE | 2020-04-01 06:15 | NUR ---
pt will not wake up at this time. v/s 171/94 o2 92 on room air, rapid response called.
--- NOTE | 2020-04-01 06:20 | NUR ---
team members at bedside. Hospitalist to intubate. stat Abg ordered, f/u on amonia levels, accu check 211mg/dl, stat head ct ordered.
[2020-04-01] MEDS ORDERED: ETOMIDATE (2MG/ML) 20ML VIAL IV ONE (06:24)
[2020-04-01] MEDS ORDERED: SUCCINYLCHOLINE CHLORIDE 20 MG/ML 10ML VIAL IV ONE (06:25)
[2020-04-01 06:29] LABS: Basophils # (auto) 0 10 ^3/uL (0-0.2); Basophils % (auto) 0.2 % (0.0-2.0); Eosinophils # (auto) 0 10 ^3/uL (0-0.8); Hemoglobin 14.4 g/dL (13.5-17.5); Lymphocytes # (auto) 0.9 10 ^3/uL (0.4-5.4); Lymphocytes % (auto) 4.9 % (10.0-50.0); Mean Corpuscular Hemoglobin 29.8 pg (28.0-32.0); Mean Corpuscular Hgb Conc. 33.4 g/dL (32.0-36.0); Mean Corpuscular Volume 89.2 fL (80.0-100.0); Monocytes # (auto) 1.9 10 ^3/uL (0-1.3); Monocytes % (auto) 10.1 % (0.0-12.0); Neutrophils # (auto) 15.6 10 ^3/uL (1.6-8.6); Neutrophils % (auto) 84.8 % (37.0-80.0); Nucleated Red Blood Cells % 0.1 %; Platelet Count (auto) 195 10^3/uL (140-450); Red Blood Cells 4.82 10^6/uL (4.5-5.90); Red Cell Distribution Width 15.7 % (11.8-14.3); White Blood Cell 18.4 10^3/uL (4.4-10.8)
--- NOTE | 2020-04-01 06:40 | NUR ---
report given to Irina, ICU CN, pt intubated, being transported to radiology at this time.
[2020-04-01] MEDS ORDERED: MIDAZOLAM DRIP 50 mg/50mL 50 ML IV ONE (06:46)
[2020-04-01 06:55] LABS: BUN/Creatinine Ratio 27.2; Calcium 8.7 mg/dL (8.5-10.1); Potassium 3.3 mmol/L (3.5-5.1)
--- NOTE | 2020-04-01 07:18 | NUR ---
Called PBX, paged Dr. Kuhn for neurologist consult stat.
[2020-04-01] MEDS ORDERED: ACETAMINOPHEN 650 mg PER 20 mL UD GT PRN (07:30)
[2020-04-01] MEDS ORDERED: DexAMETHasone SOD PHOS 10MG/1ML VIAL INJ IV ONE (07:45)
[2020-04-01] MEDS ORDERED: MANNITOL 20% SOLN 100 gm/500ml 300 ML IV ONE (07:45)
[2020-04-01] MEDS: MIDAZOLAM DRIP 50 mg/50mL 50 ML IV SCH ×2 (07:52→16:23)
--- NOTE | 2020-04-01 07:53 | NUR ---
IV insertion IV access obtained, via clean sterile technique by inserting 20 gauge catheter at left forearm after 1 attempt(s). IV secured properly. No trauma to site. Patient tolerated procedure well.
--- NOTE | 2020-04-01 07:54 | NUR ---
Keenan catheter insertion Patient assessed and determined to be in need of keenan catheter. Order obtained from MD. Patient educated on catheter and reason for insertion. All questions answered. Keenan catheter 16 guage Setswana inserted with clean sterile technique. Patient tolerated well.
--- NOTE | 2020-04-01 07:55 | NUR ---
DR DONALD NOTIFIED OF PATIENT STATUS CHANGE AND EVENTS FROM AM AND UPGRADE STATUS. NOTIFIED OF STAT HEAD CT RESULTS
--- NOTE | 2020-04-01 08:03 | NUR ---
Nasogastric tube insertion Patient educated on need for NG tube. All questions addressed. NGT inserted per MD order. Placement verified by aspiration of stomach contents, auscultation and chest xray.
--- NOTE | 2020-04-01 08:04 | NUR ---
LEFT MESSAGE FOR PEACE (NEXT OF KIN LISTED) TO UPDATE ON PATIENTS EVENTS/ CHANGES.
--- NOTE | 2020-04-01 08:17 | NUR ---
SPOKE WITH PEACE AT HOME NUMBER [phone] UPDATED ON PATIENTS STATUS CHANGE. SHE ASKED IF SHE CAN COME TO SEE HIM. WILL DISCUSS WITH
--- NOTE | 2020-04-01 08:19 | NUR ---
I faxed higher level of care order to [facility].
--- NOTE | 2020-04-01 08:30 | NUR ---
IV insertion IV access obtained, via clean sterile technique by inserting 20 gauge catheter at RT FOREARM after 1 attempt(s). IV secured properly. No trauma to site. Patient tolerated procedure well.
[2020-04-01 08:36] LABS: INR 0.99 (0.9-1.15); Partial Thromboplastin Time 28.3 sec (23.0-31.2)
[2020-04-01 09:05] LABS: Basophils # (auto) 0 10 ^3/uL (0-0.2); Basophils % (auto) 0.3 % (0.0-2.0); Eosinophils # (auto) 0 10 ^3/uL (0-0.8); Hematocrit 37.2 % (41.0-53.0); Hemoglobin 12.2 g/dL (13.5-17.5); Lymphocytes # (auto) 0.4 10 ^3/uL (0.4-5.4); Lymphocytes % (auto) 2.7 % (10.0-50.0); Mean Corpuscular Hemoglobin 29.3 pg (28.0-32.0); Mean Corpuscular Hgb Conc. 32.8 g/dL (32.0-36.0); Mean Corpuscular Volume 89.1 fL (80.0-100.0); Monocytes # (auto) 1.2 10 ^3/uL (0-1.3); Monocytes % (auto) 8.8 % (0.0-12.0); Neutrophils # (auto) 11.8 10 ^3/uL (1.6-8.6); Neutrophils % (auto) 88.2 % (37.0-80.0); Platelet Count (auto) 165 10^3/uL (140-450); Red Blood Cells 4.17 10^6/uL (4.5-5.90); Red Cell Distribution Width 15.6 % (11.8-14.3); White Blood Cell 13.4 10^3/uL (4.4-10.8)
--- NOTE | 2020-04-01 09:07 | NUR ---
Patient's at the bedside.
--- NOTE | 2020-04-01 09:18 | NUR ---
I spoke with Laura at [facility]-provided her with contact information for Dr. Kuhn (per her request) as well as Dr. Nuñez and the nurse's station. Per Laura she will contact her MD now and she will give me a call back. I faxed Neurology consult notes to [facility].
[2020-04-01 09:25] LABS: Albumin 2.5 g/dL (3.4-5.0); Calcium 7.7 mg/dL (8.5-10.1); Potassium 3.1 mmol/L (3.5-5.1)
[2020-04-01 09:33] LABS: BUN/Creatinine Ratio 30.7; Bilirubin, Total 0.6 mg/dL (0.2-1.0); Total Protein 5.5 g/dL (6.4-8.2)
[2020-04-01] MEDS ORDERED: CHOLECALCIFEROL (VITD3) 1,000UNIT=25mCg TAB PO SCH (10:00)
[2020-04-01] MEDS: POTASSIUM CHL 20MEQ/100ML 100 ML IV SCH ×2 (10:12→11:59)
[2020-04-01] MEDS: FAMOTIDINE (10MG/ML) 2ML VL IV SCH ×2 (10:12→22:02)
--- NOTE | 2020-04-01 10:22 | NUR ---
assessment Patient is a 65 year old male who is on a vent in [place]. Per patients Victor Hugo prior to admission patient lived home with her and was independent. Patient has a fww and a cane, but does not need to use them. Patients PCP is Dr Lacey Street. Patient has an advanced directive and POA. I informed Victor Hugo I will continue to monitor and follow up as appropriate for any post discharge needs. Victor Hugo verbalized understanding. Addendum: 04/01/20 at 1430 by Catrina AWAN Amended: Links added.
--- NOTE | 2020-04-01 10:30 | NUR ---
Dr. Nuñez at the bedside, plan of care discussed with Ivania () and Obey Good. Families agreed with the plan of care, signed DNR at this time, will cancel transfer to higher level of care, cancel FFP, will consider for hospice care at this time.
--- NOTE | 2020-04-01 10:45 | NUR ---
I received a call from Amelia at [facility] letting me know that they have a bed available for this patient. I called [facility] and spoke with Dr. Nuñez-he said family has decided they do not want patient transferred-possible terminal wean/hospice when additional family members arrive. I asked patient's primary nurse to have transfer order cancelled. I called [facility] and spoke with Amelia to let her know transfer is not needed at this time.
[2020-04-01] MEDS: VANCOMYCIN 1GM/250ML 250 ML IV SCH ×2 (11:59)
[2020-04-01] MEDS ORDERED: POTASSIUM CHL 20MEQ/100ML 100 ML IV SCH (12:00)
--- NOTE | 2020-04-01 12:00 | NUR ---
Received a call from his daughter, password given. Updated patient's condition and plan of care, she made aware, stated that on the way from [facility] to see patient today.
--- NOTE | 2020-04-01 12:58 | NUR ---
Nutrition Assessment Notes Please refer to link for full assessment notes. Est Energy needs: 6868-8962 kcals (30-35 kcal/kgBW) Est Protein needs: 55-74 gms/day (1.2-1.6 gm/kgBW) Will continue to monitor and reassess prn. Addendum: 04/01/20 at [address] Amended: Links added.
--- NOTE | 2020-04-01 13:08 | NUR ---
Clarified potassium order with Dr. Nuñez that already given 40 mEq of KCL this morning, will cancel 40 mEq of KCL this noon. No IV fluid needed at this time.
--- NOTE | 2020-04-01 13:25 | NUR ---
Dr. Mcneal at the bedside, discussed the plan of care with patient's families ( and brother).
--- NOTE | 2020-04-01 16:50 | NUR ---
Made a copy of AD and kept it in the patient's chart.
--- NOTE | 2020-04-01 18:10 | NUR ---
BM (smear) bile color. Perineal care provided, partial linen changed, re positioning. Mouth care provided. All families at the bedside.
--- NOTE | 2020-04-01 19:23 | NUR ---
Opening Shift Note Assumed care of patient, patient is currently on the ventilator with 8 mm ET Tube 22 at the lip with settings of AC - 14 Peep 5, Vt - 500 FIO2 of 40% oxygen sat of 94% patient patient is sedated with 3 of versed patient shows no s/s of distress at this time. Family care cart available to family and family Instructed on POC Family is requesting to see the neurologist at this time.
--- NOTE | 2020-04-01 19:34 | NUR ---
Paged Dr. Kuhn per families request.
--- NOTE | 2020-04-01 20:00 | NUR ---
Position Change, Patient position change to Right side via two person patient place extremities placed in anatomically correct position
--- NOTE | 2020-04-01 20:20 | NUR ---
Family Meeting w/ MD Dr. Kuhn met with patient family and discussed plan of care for patient, no changes to current care for the time being, MD ordered an EEG for the morning, Family will call the family professor of business to see the patient 04/02. Per MD Family will notify staff when patient is to be terminally weaned, family is agreeable to the plan of care at this time.
--- NOTE | 2020-04-01 21:00 | NUR ---
Sedation vacation held at this time patient to unstable pending possible terminal wean 04/02/2020 Addendum: 04/01/20 at 2253 by JL CARL RN RN Amended: Links added.
[2020-04-01] MEDS: ATORVASTATIN 20 MG TAB PO SCH (21:47)
[2020-04-02] VITALS (75 sets, daily range): BP systolic 95–184; BP diastolic 60–77
--- NOTE | 2020-04-02 00:26 | NUR ---
Ammon Lopez. Spoke with lab regarding vanco troph results per compressor technician, machine was not working, but is working now lab result will post as soon as possible.
[2020-04-02] MEDS: VANCOMYCIN 1GM/250ML 250 ML IV SCH ×2 (00:56→11:51)
--- NOTE | 2020-04-02 02:25 | NUR ---
Levo Restarted Levophed at 0225 Addendum: 04/02/20 at 022 by JL CARL RN RN Entered in Error
--- NOTE | 2020-04-02 04:00 | NUR ---
Morning Care. Patient provided a bed bath with CHG wipes, chema area and catheter care performed, partial linen change and gown change provided, oral care performed, repositioned in bed with extremities in anatomically correct position patient is sedated with versed at 3, patient vent settings are AC 14, Vt 500, FIO2 40%, PEEP 5 bed placed in lowest position with bed rails up x 3 and brake applied
[2020-04-02] MEDS: GABAPENTIN 300 MG CAP PO SCH ×2 (06:00→14:00)
--- NOTE | 2020-04-02 06:50 | NUR ---
END Shift Note: Provide report to on coming RN, endorsed care to on coming RN, to Call EEG Department to perform EEG as early in the morning to perform EEG patient is sedated with 3 of versed, patient vent settings are Mode AC, Vt 500, FIO2 @ 40% and PEEP 5. patient is responsive to pain. bed is in lowest position with bed rails up x3 with brake applied.
--- NOTE | 2020-04-02 07:50 | NUR ---
OPENING SHIFT NOTE Received report from NOC RN, Tammie. Assumed care of patient. Received patient lying in bed, intubated and sedated, connected to bedside monitor with alarms in place. Patient intubated, ET8.0/22@lip, AC 14 TV 500 fiO2 40% P5, RR 16. Patient pupils unequal and fixed L 5mm, R 2mm. No cough/gag present. Patient with Versed at 3mg/hr infusing into #20 LFA. Other PIVs, #20 RFA and #20 RAC are patent and flush. Evangelista draining to gravity clear yellow UOP. Patient is currently a DNR. Family is aware of patient's prognosis and family discussion was held with Dr Kuhn the previous evening. Family wishing to do a terminal wean off ventilator, but no specific time has yet been given. See physical assessment. Bed in lowest position, rails x3 up. Will continue to monitor.
--- NOTE | 2020-04-02 08:20 | NUR ---
MD Dr Nuñez at bedside to see patient. Updated on family meeting held with Dr Kuhn. No new orders received.
--- NOTE | 2020-04-02 08:46 | NUR ---
MD Dr Kuhn at bedside to see patient. No new orders received.
[2020-04-02] MEDS: MIDAZOLAM DRIP 50 mg/50mL 50 ML IV SCH (09:00)
--- NOTE | 2020-04-02 10:05 | NUR ---
FAMILY Daughter, Starr at bedside. Updated on patient status. All questions addressed at this time.
[2020-04-02] MEDS: POTASSIUM CHL 20MEQ/100ML 100 ML IV SCH ×3 (10:48→12:57)
[2020-04-02] MEDS: FAMOTIDINE (10MG/ML) 2ML VL IV SCH (10:48)
--- NOTE | 2020-04-02 11:10 | NUR ---
RESPIRATORY Patient's O2 sats 89%. Attempted to suction patient, no secretions noted. Placed patient on temporary 100% fiO2 on vent. O2 sats increased to 92%. Paged RT, Ivy and notified of low O2 sats and need to increase fiO2. RT states will be by to adjust vent settings accordingly.
--- NOTE | 2020-04-02 11:30 | NUR ---
EEG EEG techs at bedside.
--- NOTE | 2020-04-02 11:35 | NUR ---
RESPIRATORY Ivy, RT at bedside. fiO2 increased to 45%.
--- NOTE | 2020-04-02 12:00 | NUR ---
EEG COMPLETED AT BEDSIDE. PRIMARY RN CARLOS DONAHUE.
--- NOTE | 2020-04-02 12:37 | NUR ---
FAMILY Patient's , Victor Hugo at bedside with other family members. Updated on patient status. Offered comfort cart to family. All questions addressed at this time.
[2020-04-02] MEDS ORDERED: VANCOMYCIN 1GM/250ML 250 ML IV SCH ×2 (13:30→20:00)
--- NOTE | 2020-04-02 13:54 | NUR ---
FAMILY Patient's , Victor Hugo and daughter Starr at bedside. Clarified when family wishes to extubate patient. Daughter and in agreement to extubate around 2pm. Notified RT Ivy and Dr Nuñez. Orders received to keep patient on Versed drip post extubation.
--- NOTE | 2020-04-02 14:06 | NUR ---
Respiratory note: COMPASSIONATE EXTUBATION, FAMILY AND RN AT BEDSIDE.PLACED PT ON 2L N/C.
--- NOTE | 2020-04-02 14:15 | NUR ---
EXTUBATION Patient extubated at 1406 per family's wishes by RT Ivy. All family present. Patient placed on NC @ 2L. Morphine 2mg IV given for comfort. Will continue to monitor.
[2020-04-02] MEDS: MORPHINE SULF INJ 2 MG/ML SYRINGE 1ML IV PRN (14:48)
[2020-04-02] MEDS ORDERED: GLYCOPYRROLATE 0.2 MG/ML 1ML VIAL IM ONE (15:00)
--- NOTE | 2020-04-02 15:12 | NUR ---
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
--- NOTE | 2020-04-02 15:47 | NUR ---
D/C planning Per SS consult for hospice evaluation. Contact patient Beverly who requested [facility] hospice. Faxed clinical information to agency. Per Gela with [facility] hospice order has been received and service to start upon d/c day.
--- NOTE | 2020-04-02 16:00 | NUR ---
HOSPICE [facility], [facility] to see patient and speak with patient's , Victor Hugo.
--- NOTE | 2020-04-02 16:30 | NUR ---
No BP taken due to family at bedside from [id number]. Family removed cuff. Patient is comfort measures. Will continue to monitor.
--- NOTE | 2020-04-02 16:30 | NUR ---
FAMILY Family no longer at bedside. Numbers provided to contact both , Victor Hugo [phone] and/or daughter, Merced [phone]. Patient is calm. VSS. Stopped versed gtt.
--- NOTE | 2020-04-02 19:23 | NUR ---
END OF SHIFT NOTE Patient comfort measures. Patient on simple mask at 4L with O2 sats in the 80s. Family has made decision for patient to go on hospice with [facility] tomorrow. Report given to NOC RNDianna.
--- NOTE | 2020-04-02 19:40 | NUR ---
SPOKE WITH MD TALKED TO VIA TELEPHONE. ORDERS TO DISCONTINUE ALL MEDICATIONS EXCEPT MORPHINE AND ATIVAN FOR COMFORT MEASURES. ALSO RECEIVED ORDER TO CANCEL ALL LABS/CHEST XRAY AND PENDING PROCEDURES SCHEDULED TOMORROW. ORDER READ BACK AND VERIFIED. WILL CARRY OUT ORDERS.
--- NOTE | 2020-04-02 19:45 | NUR ---
OPENING NOTE REPORT RECEIVED FROM DESIRE GONZALEZ. PATIENT IS DNR/COMFORT MEASURES ONLY. RECEIVED PATIENT IN UNRESPONSIVE STATE. PATIENT WAS TERMINALLY EXTUBATED AT 1406 THIS AFTERNOON. PATIENT IS NO LONGER ON ANY SEDATION. PUPILS ARE UNEQUAL AND FIXED, PATIENT IS ON 4L SIMPLE FACE MASK WITH SPO2 RANGING BETWEEN 78-83%. 3 PERIPHERAL IV'S NOTED: RIGHT AC 2OG, RIGHT FOREARM 20G, AND LEFT FOREARM 20G. ALL IV LINES INTACT, PATENT AND SALINE LOCKED. RUBIO DRAINING CLEAR YELLOW URINE TO GRAVITY. PATIENTS FAMILY AWARE OF SITUATION AND PLANNING TO TAKE PATIENT HOME ON HOSPICE POSSIBLY TOMORROW.
--- NOTE | 2020-04-02 23:42 | NUR ---
FAMILY PATIENTS DAUGHTER CALLED FOR AN UPDATED. CORRECT PASSWORD WAS PROVIDED. UPDATE GIVEN ON CURRENT VITALS AND STATUS, ALL QUESTIONS ANSWERED.
[2020-04-03] VITALS (8 sets, daily range): BP systolic 123–151; BP diastolic 63–77
--- NOTE | 2020-04-03 02:15 | NUR ---
ROUNDED: COVERING DESIRE CORBIN FOR LUNCH. SLEEPING. EVEN AND UNLABORED BREATHING. SpO2 80s%. VSS OTHERWISE. NO SIGNS OF DISTRESS. WILL ENDORSE CARE BACK TO PRIMARY RN.
[2020-04-03] MEDS: MORPHINE SULF INJ 2 MG/ML SYRINGE 1ML IV PRN ×4 (03:21→08:06)
[2020-04-03] MEDS: LORazepam 2MG/ML-1ML VIAL IV PRN ×3 (04:22→07:45)
--- NOTE | 2020-04-03 06:40 | NUR ---
CHANGE IN VITALS PATIENT SPO2 RAPIDLY DECREASED FROM 70'S DOWN TO 30'S AND SUSTAINING. HEART RATE IN 120'S. CHANGE IN BREATHING ALSO NOTED. PATIENT NOW TAKING AGONAL BREATHS WILL CALL FAMILY IMMEDIATELY TO NOTIFY THEM OF THIS CHANGE
--- NOTE | 2020-04-03 06:44 | NUR ---
FAMILY CALLED PATIENTS POA AND TO NOTIFY HER OF PATIENTS CHANGE IN HEART RATE, AND RAPIDLY DECREASING SPO2. PER , "IM COMING". AWAITING FAMILY ARRIVAL.
--- NOTE | 2020-04-03 07:00 | NUR ---
FAMILY FAMILY ARRIVED AND IS AT BEDSIDE
--- NOTE | 2020-04-03 07:28 | NUR ---
CLOSING PATIENT REMAINS ON COMFORT MEASURES. COMFORT MEDICATIONS GIVEN ORDERED THROUGHOUT SHIFT. PATIENT KEPT COMFORTABLE POSSIBLE. PATIENT HAVING AGONAL BREATHING WITH AUDIBLE RALES/CRACKLES, SPO2 AT 56%, HEART RATE AT 99. MULTIPLE FAMILY MEMBERS ARE AT BEDSIDE. CARE ENDORSED TO DESIRE GONZALEZ TO ASSUME CARE OF PATIENT.
--- NOTE | 2020-04-03 07:45 | NUR ---
OPENING SHIFT NOTE Received report from NOC RNDianna. Assumed care of patient. Received patient lying in bed, connected to bedside monitor with family at bedside. Patient is currently comfort measures only and family plan is to go home on hospice. Patient is currently on SM at 5L for comfort. Updated family on plan of care. Will continue to monitor.
--- NOTE | 2020-04-03 08:00 | NUR ---
FAMILY Family at bedside. Patient with agnonal breathing. Family requesting morphine.
--- NOTE | 2020-04-03 08:11 | NUR ---
Monitor reading asystole. No apical pulse auscultated. Dr Nuñez paged to pronounce patient.
--- NOTE | 2020-04-03 08:21 | NUR ---
Dr Nuñez at bedside to pronounce patient. Time of 0808. [facility], Nancy, notified of patient passing.
--- NOTE | 2020-04-03 09:00 | NUR ---
[facility] notified of patient's . Body released. Case # [id number]
--- NOTE | 2020-04-03 09:13 | NUR ---
I REC'D CALL FROM MARYCARMEN AT [facility] IN [place] [phone]. THEY HAVE BEEN AUTHORIZED BY FAMILY TO PICKUP DECEDENT. RELEASE TO BE FAXED PICKUP TIME APPROX 3 HRS
--- NOTE | 2020-04-03 09:20 | NUR ---
PROBATION AGENT Last Remodeler Repairer's office notified. Info left. Awaiting call back to release body.
--- NOTE | 2020-04-03 10:19 | NUR ---
SEWAGE TREATMENT PLANT OPERATOR Body released by Ada Obey [place], case #[id number].
--- NOTE | 2020-04-03 10:57 | NUR ---
Post mortem care provided. Patient taken to [facility], awaiting pickup by families [facility] mortuary [facility]. Notified [facility] contact, Morena, that body has been released by medicaid collection specialist. Patient's Victor Hugo notified.
== END 2020-04-03 11:30 | disposition expired | DRG 871 ==
LOC: EDBD 06:51 → ER 06:51 → TELE 06:52 → TELE-EAST 12:54 → TELE-WESTW 20:40 → DOU IN ICU 04-01 06:46
PROVIDERS: ADMIT Hospitalist; ATTEND Internal Medicine
PROC: 5A1945Z Respiratory Ventilation, 24-96 Consecutive Hours (ICD-10-PCS; principal; 2020-04-01)
PROC: 0BH17EZ Insertion of Endotracheal Airway into Trachea, Via Natural or Artificial Opening (ICD-10-PCS; 2020-04-01)
DX: A41.9 Sepsis, unspecified organism (principal); G93.5 Compression of brain; I21.A1 Myocardial infarction type 2; I61.5 Nontraumatic intracerebral hemorrhage, intraventricular; R40.20 Unspecified coma; J96.01 Acute respiratory failure with hypoxia; J84.9 Interstitial pulmonary disease, unspecified; E66.9 Obesity, unspecified; E78.5 Hyperlipidemia, unspecified; Z20.828 Contact with and (suspected) exposure to other viral communicable diseases; E87.6 Hypokalemia; F17.210 Nicotine dependence, cigarettes, uncomplicated; F41.9 Anxiety disorder, unspecified; I25.10 Atherosclerotic heart disease of native coronary artery without angina pectoris; K21.9 Gastro-esophageal reflux disease without esophagitis; M06.9 Rheumatoid arthritis, unspecified; Z51.5 Encounter for palliative care; Z66 Do not resuscitate; A49.02 Methicillin resistant Staphylococcus aureus infection, unspecified site; Z88.0 Allergy status to penicillin; Z68.28 Body mass index [BMI] 28.0-28.9, adult
CPT/HCPCS: 36415; 36600; 70450; 71045; 71250; 74176; 80048; 80053; 80061; 80202; 80307; 81001; 82140; 82728; 82805; 82962; 83036; 83605; 83615; 83735; 83880; 84443; 84484; 85025; 85379; 85610; 85730; 86141; 86850; 86900; 86901; 87040; 87070; 87077; 87086; 87186; 87205; 87426; 87493; 87804; 93005; 93926; 94002; 94003; 95819; 99291; G0378; J0330; J1100; J1885; J2250; J3480; J3490